=== PATIENT | female | born 1955 | race Caucasian/White ===

== ENCOUNTER 2018-05-15 17:07 | Outpatient (REF) | payer MEDICAID, SELFPAY ==
[2018-05-15 22:09] LABS: Cholesterol 282 mg/dL (50-200); HDL Cholesterol 61 mg/dL (40-60); LDL CHOLESTEROL 198 mg/dL (<100); Triglyceride 121 mg/dL (30-150)
== END 2018-05-15 17:27 ==
LOC: NCHCN 17:07
PROVIDERS: PCP Family Medicine; Visit Provider Registered Nurse
DX: E78.5 Hyperlipidemia, unspecified (principal)
CPT/HCPCS: 80061; 83721

== ENCOUNTER 2021-05-06 12:50 | Outpatient (REF) | payer MEDICARE, MEDICAID, SELFPAY ==
[2021-05-06 14:28] LABS: Hemoglobin A1C 5.7 % (<5.7)
[2021-05-06 14:31] LABS: Calculated LDL 118 mg/dL (<100); Cholesterol 192 mg/dL (<200); HDL Cholesterol 59 mg/dL (40-60); Triglyceride 79 mg/dL (<150)
[2021-05-09 04:47] LABS: Vitamin D 25 Total 13.3 ng/mL (30-100)
== END 2021-05-06 12:51 | disposition home or self-care (01) ==
LOC: NCHCN 12:50
PROVIDERS: PCP Family Medicine; Visit Provider Family Medicine
DX: E78.5 Hyperlipidemia, unspecified (principal); R73.09 Other abnormal glucose; M85.88 Other specified disorders of bone density and structure, other site
CPT/HCPCS: 80061; 82306; 83036

== ENCOUNTER 2021-11-02 17:31 | Outpatient (REF) | payer MEDICARE, MEDICAID, SELFPAY ==
[2021-11-02 21:21] LABS: Anion Gap 12.4 mmol/L (3-11); BUN 19 mg/dL (7-18); CO2 22.6 mmol/L (21.0-32.0); CREATININE 0.9 mg/dL (0.55-1.02); Calcium 9.1 mg/dL (8.5-10.1); Chloride 105 mmol/L (98-107); Glucose 94 mg/dL (74-106); Sodium 140 mmol/L (136-145)
[2021-11-03 05:41] LABS: Vitamin D 25 Total 20.5 ng/mL (30-100)
== END 2021-11-02 17:32 | disposition home or self-care (01) ==
LOC: NCHCN 17:31
PROVIDERS: PCP Family Medicine; Visit Provider Family Medicine
DX: E55.9 Vitamin D deficiency, unspecified (principal); R03.0 Elevated blood-pressure reading, without diagnosis of hypertension; R73.09 Other abnormal glucose; M17.11 Unilateral primary osteoarthritis, right knee
CPT/HCPCS: 80048; 82306